=== PATIENT | female | born 1940 | race Caucasian/White ===

== ENCOUNTER → 2021-04-13 | Outpatient (CLI) | payer OTHER ==
[~2021-04-13] MED LIST: COREG12.5 MG PO; ELIQUIS2.5 MG PO; FISH OIL 1,2001 EAC1 PO; FISH OIL 1,2001 EAC7 PO; GLUCOSAMINE CH1 EAC2 PO; GLUCOSAMINE CH1 EAC6 PO; HYDROCODON-ACE1 EAC6 PO; LISINOPRIL10 MG PO; MELATONIN10 M2 PO; MULTIVITAMIN SENIOR PO; TIZANIDINE HCL4 MG PO
[2021-04-13 12:47] LABS: HEMOGLOBIN 13.4 gm/dl (12.3-15.3); RED BLOOD COUNT 4.25 M/UL (4.00-5.10); WHITE BLOOD COUNT 6.9 K/UL (4.5-11.0)
[2021-04-13 13:14] LABS: BUN/CREATININE RATIO 25 (0-10)
== END ==
LOC: OPSV2 11:28 → EDSTATUS 11:30 → OPSV2 11:30
PROVIDERS: Orthopaedic Surgery
DX: Z01.818 Encounter for other preprocedural examination (principal); M17.11 Unilateral primary osteoarthritis, right knee
CPT/HCPCS: 36415; 80048; 85027; 87081; 93005

== ENCOUNTER 2021-04-28 05:40 | Inpatient (IN) | payer OTHER ==
[~2021-04-28] VITALS: Ht 157.5 cm; Wt 70.3 kg
[~2021-04-28 05:40] MED LIST changes: -ELIQUIS2.5 MG PO; -FISH OIL 1,2001 EAC7 PO; -GLUCOSAMINE CH1 EAC2 PO; -HYDROCODON-ACE1 EAC6 PO
[2021-04-28] MEDS ORDERED: HYDROCODON-ACE1 EAC6 PO (08:44)
[2021-04-28] MEDS ORDERED: ELIQUIS2.5 MG PO (08:44)
[2021-04-28] MEDS ORDERED: MELATONIN10 M2 PO (20:02)
[2021-04-28] MEDS ORDERED: FISH OIL 1,2001 EAC7 PO (20:02)
[2021-04-28] MEDS ORDERED: GLUCOSAMINE CH1 EAC2 PO (20:03)
[2021-04-29 03:37] LABS: HEMOGLOBIN 11.3 gm/dl (12.3-15.3); RED BLOOD COUNT 3.6 M/UL (4.00-5.10); WHITE BLOOD COUNT 13.8 K/UL (4.5-11.0)
[2021-04-30 03:53] LABS: RED BLOOD COUNT 3.18 M/UL (4.00-5.10); WHITE BLOOD COUNT 9.7 K/UL (4.5-11.0)
[2021-05-01 03:33] LABS: HEMOGLOBIN 10.4 gm/dl (12.3-15.3); RED BLOOD COUNT 3.28 M/UL (4.00-5.10); WHITE BLOOD COUNT 8.2 K/UL (4.5-11.0)
== END 2021-05-01 14:27 | disposition home or self-care (01) | DRG 470 ==
LOC: OR 05:40 → EDSTATUS 12:15 → M/S 18:26 → OR 18:26 → M/S 04-30 15:06
PROVIDERS: ADMIT Orthopaedic Surgery
PROC: 0SRC0J9 Replacement of Right Knee Joint with Synthetic Substitute, Cemented, Open Approach (ICD-10-PCS; principal; 2021-04-28 07:30)
DX: M17.11 Unilateral primary osteoarthritis, right knee (principal); E03.9 Hypothyroidism, unspecified; I11.9 Hypertensive heart disease without heart failure; M21.061 Valgus deformity, not elsewhere classified, right knee; I49.5 Sick sinus syndrome; Z96.642 Presence of left artificial hip joint; Z20.822 Contact with and (suspected) exposure to COVID-19; Z99.3 Dependence on wheelchair; Z88.9 Allergy status to unspecified drugs, medicaments and biological substances; Z95.0 Presence of cardiac pacemaker
CPT/HCPCS: 36415; 73560; 80048; 85027; 86850; 86900; 86901; 97110-GP-CQ; 97116-GP-CQ; 97162; 97166; 97530; 97530-GP-CQ; 97535; C1776; J0171; J0690; J1100; J1170; J1644; J1885; J2270; J2405; J2704; J2795; J3010; J3370; J7030; J7040; J7050; J7120